=== PATIENT | male | born 1955 | race Caucasian/White ===

== ENCOUNTER 2023-03-28 06:05 | Day surgery (SDC) | payer BC, SELFPAY ==
[2023-03-27 14:02] VITALS: BMI 31.4
[2023-03-28 06:12] VITALS: BP 145/81
[2023-03-28 06:14] VITALS: BMI 31.4
[2023-03-28 06:19] VITALS: BMI 29.3
[2023-03-28] MEDS: TYLENOL 1000 MG PO (06:21)
[2023-03-28] MEDS: NORMOSOL-R 1000 IV (06:30)
--- NOTE | 2023-03-28 07:00 | HP.FOC2 ---
Focused History & Physical
Chief Complaint
HPI:
Chief Complaint: History of pilonidal sinus disease
HPI / Indication for Planned Procedure: 67-year-old male with history of recurrent pilonidal cyst/sinuses presenting today for surgical excision
Relevant Past Medical History: Other (Hypertension, pilonidal cyst)
Relevant Social History: Negative
Relevant Family History: Negative
Relevant Past Surgical History: Positive for (Cervical discectomy)
Review of Systems
Review of Pertinent Systems: All Systems Negative
Medication
See Medication form for detailed medications: Yes
Medication List (including Herbals & OTC):
ibuprofen 800 mg tablet 800 mg PO PRN PRN pain 01/27/14
Acidophilus 1 - 2 dose PO DAILY 03/26/23
aspirin 81 mg chewable tablet 81 mg PO DAILY 03/26/23
cholecalciferol (vitamin D3) 50 mcg (2,000 unit) tablet (Vitamin D3) 50 mcg PO DAILY 03/26/23
mupirocin 2 % topical ointment 1 applic topical DAILY 03/26/23
olmesartan 40 mg tablet 40 mg PO DAILY 03/26/23
zolpidem 12.5 mg tablet,extended release,multiphase (Ambien CR) 12.5 mg PO QPM PRN sleep 03/26/23
zolpidem 5 mg tablet (Ambien) 5 mg PO HS PRN sleep 03/26/23
Medications Reviewed: Yes
Allergies and Reactions
Patient has Allergies: Yes
Noted Allergies and Reactions:
Allergy/AdvReac Type Severity Reaction Status Date / Time
No Known Drug Allergies Allergy Unknown Verified 03/28/23 06:08
Pertinent Physical Exam
All Other Systems: Negative
Head/Neck: Normal
Lungs: Normal
Heart: Normal
Abdomen: Normal
Extremities: Normal
Neurological: Normal
Other: Pilonidal sinus tracts along the upper gluteal cleft
Diagnosis / Assessment
67-year-old male presenting for surgical management of recurrent pilonidal disease
Plan / Procedure
Excision of pilonidal sinuses/cyst with primary closure
Anesthesia/Sedation to be done by Anesthesia Provider: Yes
--- NOTE | 2023-03-28 07:05 | W.SUR.PREOP ---
Pre-Operative Surgical Note
-
I have examined this patient prior to the performance of the scheduled procedure.
The patient's condition is unchanged from the time of the current History and
Physical and the patient is able to undergo the scheduled procedure.
[2023-03-28 08:35] VITALS: BP 104/69
--- NOTE | 2023-03-28 08:39 | W.IMMPOSTOP ---
Addendum entered and electronically signed by Victor Manuel Levy MD 03/28/23 14:08:
#[id number]
Original Note:
Surgical Immed Post Op Note
-
Primary Surgeon: Cam
Assisting Surgeon: None
Pre-op Diagnosis: Pilonidal sinus/cyst
Post-op Diagnosis: Pilonidal sinus/cyst
Procedure Performed: Excision pilonidal sinus/cyst with primary closure
Anesthesia Type: MAC + 0.25% Marcaine/1% lido
Specimen / Cultures: pilonidal skin
Estimated Blood Loss: 16mL
Complications: none immediate
Operative Findings: Localized scarring in pilonidal sinus tract along upper gluteal cleft. Excision of area -8 cm long incision by 2 cm wide. Multilayer closure. Deep fascial layers with 2-0 Vicryl. Intermediate subcutaneous 2-0 Vicryl.
Subdermal 3-0 Vicryl. Skin closure with interrupted 2-0 nylon.
[2023-03-28 08:45] VITALS: BP 92/55
[2023-03-28 08:48] VITALS: BP 117/72
[2023-03-28 09:00] VITALS: BP 114/75
[2023-03-28 09:15] VITALS: BP 130/82
== END 2023-03-28 09:35 | disposition home or self-care (01) ==
LOC: SDS 06:05
PROVIDERS: ATTENDING PHYSICIAN Surgery; FAMILY PHYSICIAN Family Medicine
DX: L05.91 Pilonidal cyst without abscess (principal)
CPT/HCPCS: 11771; 88304; 36415; 93005

== ENCOUNTER → 2023-09-12 11:01 | Outpatient (REF) | payer BC, SELFPAY | LOC: RAD 11:01 | PROVIDERS: ATTENDING PHYSICIAN Family Medicine | DX: M25.552 Pain in left hip (principal) | CPT/HCPCS: 73523 ==